=== PATIENT | female | born 1960 | race African-American/Black ===

== ENCOUNTER → 2016-08-24 | Outpatient (CLI) | payer BC ==
[~2016-08-24] MED LIST: MAXZIDE 75-501 EACH PO; MULTI VITAMIN1 EACH PO; OMEPRAZOLE20 M2 PO; ONDANSETRON ODT4 MG PO; TYLENOL EXTRA500 M1 PO; VIT D PO; VITAMIN B 12 PO; VOLTAREN75 MG PO
--- NOTE | ~2016-08-24 | MY29 ---
[facility] A Service of [facility] RADIOLOGY TEXT RESULTS PATIENT: CYNTHIA GAUTAM LOCATION: [facility] : 60 UNIT #: [id number] AGE: [address]: Kari Morton MD SEX: F ORDER DR: [id number] [facility] [address] [place], [place] [address] [id number] O MR#: [id number] Acc #: [id number] NAME: CYNTHIA GAUTAM : 1960 SEX: F STUDY DATE/TIME: 08/24/2016 15:05 UNIT: [facility] ROOM: STUDY DESCRIPTION: [facility] SCREENING W/ CAD BILAT Attending Physician: Kari Morton M.D. Referring Physician: Kari Morton M.D. Ordering Physician: Kari Morton M.D. Primary Care Physician: Kari Morton M.D. MEDICAL IMAGING REPORT This report is preliminary unless electronic signature is present EXAM Bilateral digital screening mammogram with CAD DATE 08/24/2016 HISTORY No personal or family history of breast cancer or current complaints. Previous history of breast biopsy (side not designated). COMPARISON Bilateral screening mammogram 08/19/2015, 06/19/2014. FINDINGS CC and MLO views were obtained of each breast utilizing digital technique and reviewed with an FDA-approved CAD device. Scattered fibroglandular densities are present bilaterally. Benign intramammary lymph node in the right breast is unchanged. Fibronodular density in the medial hemisphere right breast CC view central third unchanged, in keeping with a benign finding. Biopsy clip is located within the central left breast lower inner quadrant, unchanged. No architectural distortion. No suspicious microcalcification. No abnormal skin thickening or nipple retraction. IMPRESSION Routine screening mammogram recommended in 1 year. Patient's over the age of 40 are entered into a reminder system with target due date for the next mammogram. BIRADS: 2 Benign findings [facility] A Service of [facility] RADIOLOGY TEXT RESULTS PATIENT: CYNTHIA GAUTAM LOCATION: [facility] : 60 UNIT #: [id number] AGE: [address]: Kari Morton MD SEX: F ORDER DR: Dictated by... Kassandra Vicente M.D. THIS IS AN ELECTRONICALLY VERIFIED REPORT Kassandra Vicente M.D. at 08/25/2016 7:12 AM ALEM/jose TD: 08/24/2016 16:15 JOB #: [id number] MEDICAL IMAGING REPORT Page 1 of 1 COPY
== END | disposition home or self-care (01) ==
LOC: CWCC 14:30
DX: Z12.31 Encounter for screening mammogram for malignant neoplasm of breast (principal); Z98.890 Other specified postprocedural states
CPT/HCPCS: G0202